=== PATIENT | female | born 1975 | race Caucasian/White ===

== ENCOUNTER → 2025-06-17 | Outpatient (CLI) | payer BC ==
[~2025-06-17] MED LIST: IOHEXOL-350 75 ML VIAL IV ONE
--- NOTE | 2025-06-17 13:34 | HMCIMG ---
EXAM: CT Abdomen and Pelvis With Intravenous Contrast CLINICAL HISTORY: 49-year-old female with lower abdominal pain TECHNIQUE: Axial computed tomography images of the abdomen and pelvis with intravenous contrast. Standardized oral contrast was administered. Dose reduction technique was used including one or more of the following: automated exposure control, adjustment of mA and kV according to patient size, and/or iterative reconstruction. CONTRAST: Intravenous and oral COMPARISON: None provided. FINDINGS: LUNG BASES: No basilar airspace consolidation or pleural effusion. LIVER: Unremarkable. GALLBLADDER AND BILE DUCTS: Cholecystectomy clips in place. No ductal dilation. PANCREAS: Unremarkable. SPLEEN: Unremarkable. ADRENAL GLANDS: Unremarkable. KIDNEYS, URETERS, AND BLADDER: Symmetric enhancement of both kidneys on delayed images. No hydronephrosis or nephrolithiasis. No ureteral or bladder calculi. STOMACH AND BOWEL: Oral contrast noted within the stomach, small bowel, and colon up to the level of the sigmoid colon. No obstruction. No wall thickening. No CT evidence of colitis or acute diverticulitis. APPENDIX: No CT evidence for appendicitis. PERITONEUM: No free fluid. No free air. LYMPH NODES: No lymphadenopathy. REPRODUCTIVE: The uterus and adnexa are unremarkable. Small nabothian cysts are seen in the cervix. VASCULATURE: No aortic aneurysm. ABDOMINAL WALL AND SOFT TISSUES: Umbilical hernia containing mesenteric fat only. There is a small left lower quadrant anterior abdominal wall hernia containing loops of small bowel without obstruction. BONES: No fracture or suspicious osseous abnormality. IMPRESSION: 1. No acute intra-abdominal or pelvic abnormality related to the lower abdominal pain. 2. Small left lower quadrant anterior abdominal wall hernia containing loops of small bowel without obstruction. /[place]
== END | disposition home or self-care (01) ==
LOC: RAH 09:11
PROVIDERS: ATTEND Internal Medicine Gastroenterology
DX: K43.9 Ventral hernia without obstruction or gangrene (principal); R10.30 Lower abdominal pain, unspecified
CPT/HCPCS: 74177; Q9967